=== PATIENT | male | born 1960 | race Caucasian/White ===

== ENCOUNTER → 2017-12-20 | Outpatient (CLI) | payer OTHER ==
--- NOTE | 2017-12-20 08:09 | CT ---
EXAMINATION TYPE: CT sinus wo con DATE OF EXAM: 12/20/2017 COMPARISON: NONE HISTORY: Chronic sinusitis CT DLP: 596.[address] of the paranasal sinuses was performed in the axial and coronal planes. Bone and soft tissue settings are submitted. The paranasal sinuses demonstrate normal aeration and development. The paranasal sinuses are free of air fluid level. Mild mucosal thickening of the various ethmoid air cells. The osteal meatal units are patent bilaterally. The nasal septum is midline. Incidental left-sided maren bullosa. No bony destructive changes are seen within the field of view. IMPRESSION: Mild ethmoidal chronic sinusitis.
== END | disposition home or self-care (01) ==
LOC: RADCTMAIN 07:07
PROVIDERS: ATTEND Otolaryngology
DX: J32.2 Chronic ethmoidal sinusitis (principal)
CPT/HCPCS: 70486

== ENCOUNTER 2019-01-31 22:40 | Emergency (ER) | payer OTHER ==
[2019-01-31] MEDS ORDERED: FAMOTIDINE 20 MG/2 ML VIAL IV STA (22:58)
[2019-01-31] MEDS ORDERED: methylPREDNISolone SOD SUCCI 125 MG/2 ML VIAL IV STA (22:58)
[2019-01-31] MEDS ORDERED: diphenhydrAMINE 50 MG/ML 1 ML VIAL IVP STA (22:59)
--- NOTE | 2019-01-31 23:22 | ED ---
General Adult HPI - General Source: patient, RN notes reviewed, old records reviewed Mode of arrival: ambulatory Limitations: no limitations <Jorge Lizama - Last Filed: 02/01/19 00:04> <Monique Miles - Last Filed: 02/01/19 21:56> - General Chief complaint: Allergic Reaction Stated complaint: Poss Allergic Reaction Time Seen by Provider: 01/31/19 22:50 - History of Present Illness Initial comments: 50-year-old male patient passed history of hypertension, recurrent sinusitis denies ED for possible ALLERGIC reaction. Patient reports that he took a dose of Bactrim at approximately 8:45 PM, patient reports that approximately half hour later he began to develop itching on the dorsal aspect of his hand and his feet. Patient reports that he is still currently complaining of itching. Patient denies any other complaints. Patient has any facial swelling, patient denies any nausea vomiting diarrhea, patient denies any difficulty breathing. Systemic: Pt denies fatigue, myalgia, fever/chills, rash. Pt denies weakness, night sweats, weight loss. Neuro: Pt denies headache, visual disturbances, syncope or pre-syncope. HEENT: Pt denies ocular discharge or irritation, otalgia, rhinorrhea, pharyngitis or notable lymphadenopathy. Cardiopulmonary: Pt denies chest pain, SOB, heart palpitations, dyspnea on exertion. Abdominal/GI: Pt denies abdominal pain, n/v/d. : Pt denies dysuria, burning w/ urination, frequency/urgency. Denies new onset urinary or bowel incontinence. MSK: Pt denies myalgia, loss of strength or function in extremities. Neuro: Pt denies new onset weakness, paresthesias. (Jorge Lizama) - Related Data Home Medications Medication Instructions Recorded Confirmed Lisinopril [Zestril] 20 mg PO DAILY 08/02/16 01/31/19 Cholecalciferol [Vitamin D3] 5,000 unit PO DAILY 01/31/19 01/31/19 Fexofenadine/Pseudoephedrine 1 tab PO QAM 01/31/19 01/31/19 [Betty-D 12 Hour Tablet] HYDROcodone/APAP 10-325MG [[place] 1 tab PO TID PRN 01/31/19 01/31/19 10-325] Previous Rx's Medication Instructions Recorded Doxycycline [Vibramycin] 100 mg PO BID 10 Days #20 cap 01/31/19 EPINEPHrine [Epipen 2-Clifford] 0.3 mg IM ONCE PRN #1 pack 01/31/19 Allergies Allergy/AdvReac Type Severity Reaction Status Date / Time NSAIDS (Non-Steroidal Allergy Unknown Verified 01/31/19 23:05 Anti-Inflamma Penicillins Allergy Unknown Verified 01/31/19 23:05 Childhood Review of Systems ROS Other: All systems not noted in ROS Statement are negative. <Jorge Lizama - Last Filed: 02/01/19 00:04> ROS Other: All systems not noted in ROS Statement are negative. <Monique Miles - Last Filed: 02/01/19 21:56> ROS Statement: Those systems with pertinent positive or pertinent negative responses have been documented in the HPI. Past Medical History Past Medical History: Hypertension History of Any Multi-Drug Resistant Organisms: None Reported Past Surgical History: Orthopedic Surgery Past Psychological History: No Psychological Hx Reported Smoking Status: Current every day smoker Past Alcohol Use History: None Reported Past Drug Use History: None Reported <Jorge Lizama - Last Filed: 02/01/19 00:04> General Exam Limitations: no limitations <Jorge Lizama - Last Filed: 02/01/19 00:04> - General Exam Comments Initial Comments: Constitutional: NAD, AOX3, Pt has pleasant affect. HEENT: NC/AT, trachea midline, neck supple, no lymphadenopathy. Posterior pharynx non erythematous, without exudates. External ears appear normal, without discharge. Mucous membranes moist. Eyes PERRLA, EOM intact. There is no scleral icterus. No pallor noted. Cardiopulmonary: RRR, no murmurs, rubs or gallops, no JVD noted. Lungs CTAB in anterior and posterior galindo. No peripheral edema. Abdominal exam: Abdomen soft and non-distended. Abdomen non-tender to palpation in all 4 quadrants. Bowel sounds active in LLQ. No hepatosplenomegaly. No ecchymosis Neuro: CN II-XII grossly intact. No nuchal rigidity. MSK: No posterior calf tenderness bilaterally, homans sign negative bilaterally. Posterior tibialis and radial pulse +2 bilaterally. Sensation intact in upper and lower extremities. Full active ROM in upper and lower extremities, 5/5 stregnth. (Jorge Lizama) Course Vital Signs 01/31/19 01/31/19 02/01/19 22:42 23:39 00:06 Temperature 98.2 F 98.2 F 98.1 F Pulse Rate 89 71 80 Respiratory 16 18 18 Rate Blood Pressure 150/94 133/83 143/90 O2 Sat by Pulse 99 98 98 Oximetry Medical Decision Making <Jorge Lizama - Last Filed: 02/01/19 00:04> <Monique Miles - Last Filed: 02/01/19 21:56> - Medical Decision Making 50-year-old male patient passed history of hypertension, recurrent sinusitis denies ED for possible ALLERGIC reaction. Patient reports that he took a dose of Bactrim at approximately 8:45 PM, patient reports that approximately half hour later he began to develop itching on the dorsal aspect of his hand and his feet. Patient reports that he is still currently complaining of itching. Patie nt denies any other complaints. Patient has any facial swelling, patient denies any nausea vomiting diarrhea, patient denies any difficulty breathing. Pt VSS, afebrile. Physical exam did not display acute pathology. Patient's symptoms improved prior to administration from quadrant intervention. Patient's symptoms resolved after administration of the right, Benadryl, Pepcid. Patient medication switch to doxycycline for sinusitis. Strict return precautions discussed with patient, verbalized understanding. Patient prescribed EpiPen. Patient to return to ER if new symptoms develop or if condition worsens. Case discussed with Dr. Miles. (Jorge Lizama) I was available for consultation in the emergency department. The history and physical exam were done by the midlevel provider. I was consulted for this patient's care. I reviewed the case with the midlevel provider and based on their presentation of the patient, I agree with the assessment, medical decision making and plan of care as documented. (Monique Miles) Disposition Is patient prescribed a controlled substance at d/c from ED?: No <Jorge Lizama - Last Filed: 02/01/19 00:04> <Monique Miles - Last Filed: 02/01/19 21:56> Clinical Impression: Allergic reaction Disposition: HOME SELF-CARE Condition: Stable Instructions (If sedation given, give patient instructions): Antibiotic Medication Allergy (ED) Additional Instructions: Patient to adhere to previously discussed treatment plan and will take medication(s) as directed. Patient to follow up with PCP in 1-2 days. Patient to return to ED if symptoms do not improve. Please take doxycycline for previous diagnosis of sinusitis. Please follow-up primary care provider in 1-2 days. Please use EpiPen in case of emergency anaphylaxis. Prescriptions: EPINEPHrine [Epipen 2-Clifford] 0.3 mg IM ONCE PRN #1 pack PRN Reason: Anaphylaxis Doxycycline [Vibramycin] 100 mg PO BID 10 Days #20 cap Referrals: Kartik Carpenter MD [Primary Care Provider] - 1-2 days
[2019-01-31 23:44] VITALS: RESP 18
[2019-02-01 00:07] VITALS: BP 143/90; PULSE 80; TEMP 98.1
== END 2019-02-01 00:08 | disposition home or self-care (01) ==
LOC: EC 22:40
DX: L29.9 Pruritus, unspecified (principal); T37.0X5A Adverse effect of sulfonamides, initial encounter; J32.9 Chronic sinusitis, unspecified; I10 Essential (primary) hypertension; F17.200 Nicotine dependence, unspecified, uncomplicated; Z88.0 Allergy status to penicillin; Z88.6 Allergy status to analgesic agent; Z79.899 Other long term (current) drug therapy
CPT/HCPCS: 99283; 96374; 96375 ×2; J1200; J2930

== ENCOUNTER 2020-06-28 08:05 | Emergency (ER) | payer BC, OTHER ==
[2020-06-28 08:20] VITALS: BP 142/86; PULSE 79; RESP 18; TEMP 99
[2020-06-28] MEDS ORDERED: DEXAMETHASONE SOD PHOSPHATE 10 MG/ML 1 ML VIAL IM STA (08:51)
--- NOTE | 2020-06-28 08:51 | ED ---
General Adult HPI - General Chief complaint: Extremity Injury, Lower Stated complaint: pain in right leg Time Seen by Provider: 06/28/20 08:22 Source: patient, RN notes reviewed, old records reviewed Mode of arrival: ambulatory Limitations: physical limitation - History of Present Illness Initial comments: 59-year-old male with 3 months of right buttock and right lower extremity pain. Pain is worse with sitting. Denies injury or trauma. No fever or chills. Patient has chronic pain and follows with pain management currently on Gilbert. He has not taking any anti-inflammatories secondary to stomach issues. Patient states the pain begins in his right buttock and travels on the outside of his leg. He has an appointment with his primary care physician in 3 days. He denies any numbness, denies weakness in the lower extremities, denies saddle anesthesia. Denies any difficulties with his bowel or bladder. - Related Data Home Medications Medication Instructions Recorded Confirmed lisinopriL [Zestril] 20 mg PO DAILY 08/02/16 01/31/19 Cholecalciferol [Vitamin D3] 5,000 unit PO DAILY 01/31/19 01/31/19 Fexofenadine/Pseudoephedrine 1 tab PO QAM 01/31/19 01/31/19 [Betty-D 12 Hour Tablet] HYDROcodone/APAP 10-325MG [[place] 1 tab PO TID PRN 01/31/19 01/31/19 10-325] Previous Rx's Medication Instructions Recorded Doxycycline [Vibramycin] 100 mg PO BID 10 Days #20 cap 01/31/19 EPINEPHrine [Epipen 2-Clifford] 0.3 mg IM ONCE PRN #1 pack 01/31/19 methylPREDNISolone Dose Pack 4 mg PO DIRECTED #21 package 06/28/20 [Medrol Dose Pack] Allergies Allergy/AdvReac Type Severity Reaction Status Date / Time Penicillins Allergy Unknown Verified 06/28/20 08:20 Childhood NSAIDS (Non-Steroidal AdvReac Vomiting Verified 06/28/20 08:20 Anti-Inflamma Review of Systems ROS Statement: Those systems with pertinent positive or pertinent negative responses have been documented in the HPI. ROS Other: All systems not noted in ROS Statement are negative. Past Medical History Past Medical History: Hypertension Additional Past Medical History / Comment(s): rt knee pain History of Any Multi-Drug Resistant Organisms: None Reported Past Surgical History: Orthopedic Surgery Past Psychological History: No Psychological Hx Reported Smoking Status: Current every day smoker Past Alcohol Use History: None Reported Past Drug Use History: None Reported General Exam Limitations: physical limitation General appearance: alert, in no apparent distress Head exam: Present: atraumatic, normocephalic Eye exam: Present: normal appearance, PERRL ENT exam: Present: normal exam Neck exam: Present: normal inspection. Absent: tenderness, meningismus Respiratory exam: Present: normal lung sounds bilaterally. Absent: respiratory distress, wheezes Cardiovascular Exam: Present: regular rate, normal rhythm GI/Abdominal exam: Present: soft. Absent: distended, tenderness Extremities exam: Present: normal inspection, normal capillary refill, other (Posterior tibial pulses 2+ and symmetric on the right, warm, normal cap refill) Back exam: Present: normal inspection. Absent: paraspinal tenderness, vertebral tenderness Neurological exam: Present: alert, CN II-XII intact. Absent: motor sensory deficit Psychiatric exam: Present: normal affect, normal mood Skin exam: Present: warm, dry, intact Course Vital Signs 06/28/20 08:17 Temperature 99.0 F Pulse Rate 79 Respiratory 18 Rate Blood Pressure 142/86 O2 Sat by Pulse 99 Oximetry Medical Decision Making - Medical Decision Making 59-year-old male, currently following with pain management and with his primary care physician regarding chronic pain in the right knee. States that he's had increased pain in the right buttock radiating to the right leg for the past 3 months. He denies any injury or trauma. Patient is currently on Gilbert. He is requesting an anti-inflammatory medication and cannot take NSAIDs. Patient does not want any additional pain medication. He states he has an appointment on Wednesday with his primary care physician. Symptoms have been ongoing for 3 months and there is no alarming features on history or physical exam. Pain is consistent with sciatic nerve pain. Patient placed on steroids and will follow-up with his primary care physician in 3 days. Disposition Clinical Impression: Chronic pain, Sciatic leg pain Disposition: HOME SELF-CARE Condition: Good Instructions (If sedation given, give patient instructions): Sciatica (ED) Prescriptions: methylPREDNISolone Dose Pack [Medrol Dose Pack] 4 mg PO DIRECTED #21 package Is patient prescribed a controlled substance at d/c from ED?: No Referrals: Kartik Carpenter MD [Primary Care Provider] - 1-2 days Time of Disposition: 08:54
== END 2020-06-28 09:03 | disposition home or self-care (01) ==
LOC: EC 08:05
DX: G89.29 Other chronic pain (principal); M54.31 Sciatica, right side; I10 Essential (primary) hypertension; F17.200 Nicotine dependence, unspecified, uncomplicated; Z79.891 Long term (current) use of opiate analgesic; Z79.899 Other long term (current) drug therapy; Z88.0 Allergy status to penicillin; Z88.6 Allergy status to analgesic agent; Z98.890 Other specified postprocedural states
CPT/HCPCS: 96372; 99283; J1100

== ENCOUNTER 2023-02-11 19:20 | Emergency (ER) | payer BC, MEDICAID ==
[2023-02-11 19:32] VITALS: BP 145/89; PULSE 89; RESP 18; TEMP 97.9
[2023-02-11] MEDS ORDERED: LORATADINE 10 MG TAB PO STA (19:46)
[2023-02-11] MEDS ORDERED: FLUTICASONE 50MCG/SPRAY NASAL 16GM EA NOSTRIL STA (19:46)
--- NOTE | 2023-02-11 20:19 | ED ---
URI HPI - General Chief Complaint: Upper Respiratory Infection Stated Complaint: +covid,sinus pressure Time Seen by Provider: 02/11/23 19:45 Source: patient Mode of arrival: ambulatory - History of Present Illness Initial Comments: Patient is 62 -year-old male who presents to the emergency department for sinus pressure. Patient had a positive home COVID-19 test today. Patient has had sinus pressure for one week he just finished antibiotic for sinusitis 2 days ago. He does have history of seasonal ALLERGIES which cause sinus issues.. Patient does not have headache, facial pain, fever, chest pain, shortness breath. He more so presents for guidance on COVID-19 precautions as his has stage IV cancer currently undergoing chemotherapy. He does state that his was diagnosed with Covid one week ago and is in stable condition. - Related Data Home Medications Medication Instructions Recorded Confirmed lisinopriL [Zestril] 20 mg PO DAILY 08/02/16 01/31/19 Cholecalciferol [Vitamin D3] 5,000 unit PO DAILY 01/31/19 01/31/19 Fexofenadine/Pseudoephedrine 1 tab PO QAM 01/31/19 01/31/19 [Betty-D 12 Hour Tablet] HYDROcodone/APAP 10-325MG [[place] 1 tab PO TID PRN 01/31/19 01/31/19 10-325] Previous Rx's Medication Instructions Recorded Doxycycline [Vibramycin] 100 mg PO BID 10 Days #20 cap 01/31/19 EPINEPHrine [Epipen 2-Clfiford] 0.3 mg IM ONCE PRN #1 pack 01/31/19 methylPREDNISolone Dose Pack 4 mg PO DIRECTED #21 package 06/28/20 [Medrol Dose Pack] Allergies Allergy/AdvReac Type Severity Reaction Status Date / Time Penicillins Allergy Unknown Verified 06/28/20 08:20 Childhood sulfamethoxazole Allergy Rash/Hives Verified 02/11/23 19:32 [From Bactrim] trimethoprim [From Bactrim] Allergy Rash/Hives Verified 02/11/23 19:32 NSAIDS (Non-Steroidal AdvReac Vomiting Verified 06/28/20 08:20 Anti-Inflamma Review of Systems ROS Statement: Those systems with pertinent positive or pertinent negative responses have been documented in the HPI. ROS Other: All systems not noted in ROS Statement are negative. Past Medical History Past Medical History: Hypertension Additional Past Medical History / Comment(s): rt knee pain History of Any Multi-Drug Resistant Organisms: None Reported Past Surgical History: Orthopedic Surgery Past Psychological History: No Psychological Hx Reported Smoking Status: Current every day smoker Past Alcohol Use History: None Reported Past Drug Use History: None Reported General Exam General appearance: alert, in no apparent distress Eye exam: Present: normal appearance, PERRL, EOMI. Absent: scleral icterus, conjunctival injection, periorbital swelling ENT exam: Present: normal oropharynx, TM's normal bilaterally (serous fluid behind TM b/l) Respiratory exam: Present: normal lung sounds bilaterally. Absent: respiratory distress, wheezes, rales, rhonchi, stridor Cardiovascular Exam: Present: regular rate, normal rhythm, normal heart sounds. Absent: systolic murmur, diastolic murmur, rubs, gallop, clicks Neurological exam: Present: alert, oriented X3, CN II-XII intact Psychiatric exam: Present: normal affect, normal mood Course Vital Signs 02/11/23 19:22 Temperature 97.9 F Pulse Rate 89 Respiratory 18 Rate Blood Pressure 145/89 O2 Sat by Pulse 99 Oximetry Medical Decision Making - Medical Decision Making Was pt. sent in by a medical professional or institution (, PA, DATA CENTER PROJECT MANAGER, urgent care, hospital, or custodial...) When possible be specific @ -[No] Did you speak to anyone other than the patient for history (EMS, parent, family, police, friend...)? What history was obtained from this source @ -[No] Did you review nursing and triage notes (agree or disagree)? Why? @ -[I reviewed and agree with nursing and triage notes] Were old charts reviewed (outside hosp., previous admission, EMS record, old EKG, old radiological studies, urgent care reports/EKG's, custodial records)? Report findings @ -[No old charts were reviewed] Differential Diagnosis (chest pain, altered mental status, abdominal pain women, abdominal pain men, vaginal bleeding, weakness, fever, dyspnea, syncope, headache, dizziness, GI bleed, back pain, seizure, CVA, palpatations, mental health)? @ -URI, sinusitus,strep pharyngitis, viral pharyngitis, pneumonia, bronchitis- this list is not meant to be all-inclusive EKG interpreted by me (3pts min.). @ -[As above] X-rays interpreted by me (1pt min.). @ -[None done] CT interpreted by me (1pt min.). @ -[None done] U/S interpreted by me (1pt. min.). @ -[None done] What testing was considered but not performed or refused? (CT, X-rays, U/S, labs)? Why? @ Did offer COVID-19 testing however patient declined What meds were considered but not given or refused? Why? @ -[None] Did you discuss the management of the patient with other professionals (professionals i.e. DrDarleen, PA, DATA CENTER PROJECT MANAGER, lab, RT, psych nurse, social sciences lecturer, customer service voice, teacher, transportation officer, porter sample case)? Give summary @ -[No] Was smoking cessation discussed for >3mins.? @ -[No] Was critical care preformed (if so, how long)? @ -[No] Were there social determinants of health that impacted care today? How? (Homelessness, low income, unemployed, alcoholism, drug addiction, transportation, low edu. Level, literacy, decrease access to med. care, usp, rehab)? @ -[No] Was there de-escalation of care discussed even if they declined (Discuss DNR or withdrawal of care, Hospice)? DNR status @ -[No] What co-morbidities impacted this encounter? (DM, HTN, Smoking, COPD, CAD, Cancer, CVA, ARF, Chemo, Hep., AIDS, mental health diagnosis, sleep apnea, morbid obesity)? @ -[None] Was patient admitted / discharged? Hospital course, mention meds given and route, prescriptions, significant lab abnormalities, going to OR and other pertinent info. @ -Patient presenting with sinus pressure likely relating to COVID-19. Patient seeking guidance on safe hygiene rectus is around his sick . We discussed this in detail. Patient's already has COVID-19. He will be discharged with symptomatic management. Undiagnosed new problem with uncertain prognosis? @ -[No] Drug Therapy requiring intensive monitoring for toxicity (Heparin, Nitro, Insulin, Cardizem)? @ -[No] Were any procedures done? @ -[No] Diagnosis/symptom? @ -covid 19 Acute, or Chronic, or Acute on Chronic? @ -acute Uncomplicated (without systemic symptoms) or Complicated (systemic symptoms)? @ -uncomplicated Side effects of treatment? @ -[No] Exacerbation, Progression, or Severe Exacerbation? @ -[No] Poses a threat to life or bodily function? How? (Chest pain, [place], [place], pneumonia, PE, COPD, DKA, ARF, appy, cholecystitis, CVA, Diverticulitis, Homicidal, Suicidal, threat to staff... and all critical care pts) @ -[No] Dr. Gorman is my attending Disposition Clinical Impression: COVID-19 Disposition: HOME SELF-CARE Condition: Good Instructions (If sedation given, give patient instructions): Coronavirus Disease 2019 (COVID-19), How To Wash Your Hands (ED) Additional Instructions: Continue nasal spray. I recommend taking [id number] Zyrtec for the next 7-14 days for your sinus issues. Increase water intake. Patient is to wear a m ask and wash her hands often. Follow-up with primary care provider in one to 2 days. Return to emergency department if you experience new, concerning, or worsening symptoms. Is patient prescribed a controlled substance at d/c from ED?: No Referrals: None,Stated [Primary Care Provider] - 1-2 days
== END 2023-02-11 20:24 | disposition home or self-care (01) ==
LOC: EC 19:20
DX: U07.1 COVID-19 (principal); I10 Essential (primary) hypertension; F17.200 Nicotine dependence, unspecified, uncomplicated; Z88.0 Allergy status to penicillin; Z88.2 Allergy status to sulfonamides; Z88.6 Allergy status to analgesic agent; Z79.899 Other long term (current) drug therapy
CPT/HCPCS: 99283